=== PATIENT | male | born 1930 | race Caucasian/White ===

== ENCOUNTER → 2017-04-23 | Outpatient (CLI) | payer MEDICARE | END | disposition home or self-care (01) | LOC: RAD 13:21 | PROVIDERS: ATTEND Internal Medicine | DX: M25.462 Effusion, left knee (principal); M25.572 Pain in left ankle and joints of left foot ==

== ENCOUNTER 2018-04-21 18:40 | Inpatient (IN) | payer MEDICARE ==
[~2018-04-21] VITALS: Ht 175.3 cm; Wt 75.6 kg
[2018-04-21] MEDS ORDERED: ALLO300T PO (19:03)
[2018-04-21] MEDS ORDERED: APIX5TAB PO (19:03)
[2018-04-21] MEDS ORDERED: VITA1CAP PO (19:04)
[2018-04-21] MEDS ORDERED: ATOR40TA78 PO (19:04)
[2018-04-21] MEDS ORDERED: CARB1TAB2 PO (19:05)
[2018-04-21] MEDS ORDERED: FENT-58 EXT (19:21)
[2018-04-21] MEDS ORDERED: HYDR-3240 PO (19:21)
[2018-04-21] MEDS ORDERED: LEVO88TA2 PO (19:21)
[2018-04-21] MEDS ORDERED: GABA300C10 PO (19:21)
[2018-04-21] MEDS ORDERED: SPIR50TA2 PO (19:21)
[2018-04-21] MEDS ORDERED: METO1TAB18 PO (19:21)
[2018-04-21] MEDS ORDERED: CLON0.2T PO (19:21)
[2018-04-21] MEDS ORDERED: TRIA1TAB2 PO (19:21)
[2018-04-21 19:26] LABS: BASOPHILS # (AUTO) 0.01 x10^3/uL (0-0.1); BASOPHILS % (AUTO) 0 % (0-1); EOSINOPHILS # (AUTO) 0.01 x10^3/uL (0-0.4); EOSINOPHILS % (AUTO) 0 % (1-7); LYMPHOCYTES # (AUTO) 0.95 x10^3/uL (1-3.4); LYMPHOCYTES % (AUTO) 7 % (22-44); MD NO; MEAN CORPUSCULAR HEMOGLOBIN 23.5 pg (27.5-34.5); MEAN CORPUSCULAR HGB CONC 30.9 g/dL (33.2-36.2); MEAN CORPUSCULAR VOLUME 76.1 fL (81-97); MEAN PLATELET VOLUME 8.5 fL (7.4-10.4); MONOCYTES # (AUTO) 0.73 x10^3/uL (0.2-0.8); MONOCYTES % (AUTO) 5 % (2-9); NEUTROPHILS # (AUTO) 12.19 x10^3/uL (1.8-6.8); NEUTROPHILS % (AUTO) 88 % (42-75); PLATELET COUNT 216 x10^3/uL (130-400); RED BLOOD COUNT 4.46 x10^6/uL (4.38-5.82); RED CELL DISTRIBUTION WIDTH 21.7 % (9.4-14.8)
[2018-04-21 19:36] LABS: ALBUMIN 3.3 g/dL (3.4-5.0); ANION GAP 8 mmol/L (5-15); CALCIUM 8.9 mg/dL (8.5-10.1); CHLORIDE 105 mmol/L (98-107); CREATININE 1.61 mg/dL (0.7-1.3)
[2018-04-21 20:17] LABS: TROPONIN I < 0.015 ng/mL (0.000-0.045)
[2018-04-21] MEDS ORDERED: ONDANSETRON 2MG/ML, 2ML IVPush PRN (22:00)
[2018-04-21 23:41] VITALS: BP 120/72
[2018-04-22] MEDS ORDERED: ZOLPIDEM 5MG TABLET PO PRN
[2018-04-22] MEDS: SODIUM CHLORIDE 0.9% 1,000 ML IV SCH ×2 (00:27→13:38)
[2018-04-22] MEDS: CARBIDOPA/LEVODOPA 25 MG/100 MG TABLET PO SCH ×4 (00:55→21:11)
[2018-04-22] MEDS: APIXABAN 2.5 MG TABLET PO SCH ×3 (00:56→21:11)
[2018-04-22] MEDS: ATORVASTATIN 40 MG TABLET PO SCH ×2 (00:56→21:11)
[2018-04-22 00:57] VITALS: BP 151/73
[2018-04-22] MEDS: GABAPENTIN 300 MG CAPSULE PO SCH ×4 (00:57→21:11)
[2018-04-22] MEDS: FENTANYL 12 MCG PATCH TD SCH (01:07)
[2018-04-22 04:59] LABS: ALBUMIN 2.8 g/dL (3.4-5.0); ANION GAP 5 mmol/L (5-15); CALCIUM 8.1 mg/dL (8.5-10.1); CHLORIDE 108 mmol/L (98-107)
[2018-04-22 05:02] LABS: ALANINE AMINOTRANSFERASE 9 U/L (12-78); ALKALINE PHOSPHATASE 69 U/L (45-117); CREATININE 1.42 mg/dL (0.7-1.3); TOTAL PROTEIN 6.6 g/dL (6.4-8.2)
[2018-04-22 05:19] LABS: BASOPHILS # (AUTO) 0.02 x10^3/uL (0-0.1); BASOPHILS % (AUTO) 0 % (0-1); EOSINOPHILS # (AUTO) 0.08 x10^3/uL (0-0.4); EOSINOPHILS % (AUTO) 1 % (1-7); LYMPHOCYTES % (AUTO) 8 % (22-44); MD NO; MEAN CORPUSCULAR HEMOGLOBIN 23.7 pg (27.5-34.5); MEAN CORPUSCULAR HGB CONC 31.1 g/dL (33.2-36.2); MEAN CORPUSCULAR VOLUME 76.3 fL (81-97); MEAN PLATELET VOLUME 9.1 fL (7.4-10.4); MONOCYTES # (AUTO) 0.93 x10^3/uL (0.2-0.8); MONOCYTES % (AUTO) 7 % (2-9); NEUTROPHILS # (AUTO) 11.14 x10^3/uL (1.8-6.8); NEUTROPHILS % (AUTO) 84 % (42-75); PLATELET COUNT 195 x10^3/uL (130-400); RED CELL DISTRIBUTION WIDTH 21.7 % (9.4-14.8)
[2018-04-22] MEDS ORDERED: LEVOTHYROXINE 88 MCG TABLET PO SCH (06:00)
[2018-04-22 06:48] VITALS: BP 118/75
[2018-04-22] MEDS: METOPROLOL TARTRATE 50 MG TABLET PO SCH ×2 (06:52→17:06)
[2018-04-22 07:13] VITALS: BP 119/77
[2018-04-22] MEDS: MULTIVITS,STRESS FORMULA 1 TABLET PO SCH (08:17)
[2018-04-22] MEDS ORDERED: CARBIDOPA/LEVODOPA 25 MG/100 MG TABLET PO SCH (09:00)
[2018-04-22] MEDS ORDERED: TEMPLATE NON-FORMULARY MED. (Gabapentin** 300 MG) PO SCH (09:00)
[2018-04-22] MEDS ORDERED: FENTANYL 12 MCG EXT SCH (09:00)
[2018-04-22] MEDS ORDERED: BISACODYL 10 MG SUPP PR PRN (09:30)
[2018-04-22] MEDS: HYDROcodone/APAP 5/325 TABLET PO PRN ×3 (09:54→21:15)
[2018-04-22] MEDS ORDERED: FENTANYL 12 MCG PATCH TD SCH (10:00)
[2018-04-22 13:36] VITALS: BP 137/78
[2018-04-22 17:32] VITALS: BP 132/82
[2018-04-22 19:07] VITALS: BP 136/81
[2018-04-23 01:41] VITALS: BP 122/80
[2018-04-23] MEDS: HYDROcodone/APAP 5/325 TABLET PO PRN ×4 (02:20→21:46)
[2018-04-23] MEDS: METOPROLOL TARTRATE 50 MG TABLET PO SCH ×2 (05:36→18:12)
[2018-04-23] MEDS: LEVOTHYROXINE 88 MCG TABLET PO SCH (05:36)
[2018-04-23] MEDS: CARBIDOPA/LEVODOPA 25 MG/100 MG TABLET PO SCH ×4 (05:36→21:45)
[2018-04-23 08:03] VITALS: BP 145/69
[2018-04-23] MEDS: APIXABAN 2.5 MG TABLET PO SCH ×3 (08:12→21:57)
[2018-04-23] MEDS: MULTIVITS,STRESS FORMULA 1 TABLET PO SCH (08:12)
[2018-04-23] MEDS: GABAPENTIN 300 MG CAPSULE PO SCH ×3 (08:13→21:46)
[2018-04-23 13:40] VITALS: BP 154/84
[2018-04-23 18:10] VITALS: BP 148/83
[2018-04-23] MEDS: ATORVASTATIN 40 MG TABLET PO SCH (21:46)
[2018-04-24 02:01] VITALS: BP 138/76
[2018-04-24 06:10] VITALS: BP 153/81
[2018-04-24] MEDS: CARBIDOPA/LEVODOPA 25 MG/100 MG TABLET PO SCH ×4 (06:13→21:23)
[2018-04-24] MEDS: DOCUSATE 100 MG CAPSULE PO PRN ×2 (06:13→21:23)
[2018-04-24] MEDS: METOPROLOL TARTRATE 50 MG TABLET PO SCH ×2 (06:13→18:10)
[2018-04-24] MEDS: HYDROcodone/APAP 5/325 TABLET PO PRN ×3 (06:13→18:10)
[2018-04-24] MEDS: LEVOTHYROXINE 88 MCG TABLET PO SCH (06:14)
[2018-04-24 07:40] VITALS: BP 155/77
[2018-04-24] MEDS: APIXABAN 2.5 MG TABLET PO SCH ×2 (09:06→21:23)
[2018-04-24] MEDS: GABAPENTIN 300 MG CAPSULE PO SCH ×3 (09:06→21:23)
[2018-04-24] MEDS: MULTIVITS,STRESS FORMULA 1 TABLET PO SCH (09:06)
[2018-04-24 13:55] VITALS: BP 119/75
[2018-04-24] MEDS ORDERED: POLYETHYLENE GLYCOL 17 GM PACKET PO PRN (15:30)
[2018-04-24 18:09] VITALS: BP 159/84
[2018-04-24 19:01] VITALS: BP 157/89
[2018-04-24] MEDS: ATORVASTATIN 40 MG TABLET PO SCH (21:23)
[2018-04-25 00:38] VITALS: BP 115/77
[2018-04-25] MEDS: FENTANYL 12 MCG PATCH TD SCH (00:59)
[2018-04-25 05:56] VITALS: BP 138/83
[2018-04-25] MEDS: HYDROcodone/APAP 5/325 TABLET PO PRN ×3 (05:59→16:02)
[2018-04-25] MEDS: METOPROLOL TARTRATE 50 MG TABLET PO SCH ×2 (05:59→17:54)
[2018-04-25] MEDS: CARBIDOPA/LEVODOPA 25 MG/100 MG TABLET PO SCH ×4 (05:59→22:05)
[2018-04-25] MEDS: LEVOTHYROXINE 88 MCG TABLET PO SCH (05:59)
[2018-04-25 07:20] VITALS: BP 137/84
[2018-04-25] MEDS: MULTIVITS,STRESS FORMULA 1 TABLET PO SCH (08:52)
[2018-04-25] MEDS: GABAPENTIN 300 MG CAPSULE PO SCH ×3 (08:52→22:05)
[2018-04-25] MEDS: APIXABAN 2.5 MG TABLET PO SCH ×2 (08:52→22:05)
[2018-04-25 12:32] VITALS: BP 110/72
[2018-04-25 17:51] VITALS: BP 145/74
[2018-04-25 19:36] VITALS: BP 155/74
[2018-04-25] MEDS: BACLOFEN 10 MG TABLET PO PRN (22:05)
[2018-04-25] MEDS: ATORVASTATIN 40 MG TABLET PO SCH (22:05)
[2018-04-26] VITALS (7 sets, daily range): BP systolic 131–169; BP diastolic 62–82
[2018-04-26] MEDS: BACLOFEN 10 MG TABLET PO PRN ×2 (06:25→16:18)
[2018-04-26] MEDS: CARBIDOPA/LEVODOPA 25 MG/100 MG TABLET PO SCH ×4 (06:25→20:34)
[2018-04-26] MEDS: METOPROLOL TARTRATE 50 MG TABLET PO SCH ×2 (06:25→17:56)
[2018-04-26] MEDS: LEVOTHYROXINE 88 MCG TABLET PO SCH (06:25)
[2018-04-26] MEDS: MULTIVITS,STRESS FORMULA 1 TABLET PO SCH (08:41)
[2018-04-26] MEDS: GABAPENTIN 300 MG CAPSULE PO SCH ×3 (08:41→20:34)
[2018-04-26] MEDS: HYDROcodone/APAP 5/325 TABLET PO PRN ×4 (08:41→20:34)
[2018-04-26] MEDS: APIXABAN 2.5 MG TABLET PO SCH ×2 (08:41→20:34)
[2018-04-26] MEDS: ATORVASTATIN 40 MG TABLET PO SCH (20:34)
[2018-04-27 00:54] VITALS: BP 147/74
[2018-04-27] MEDS: BACLOFEN 10 MG TABLET PO PRN ×3 (01:33→12:53)
[2018-04-27] MEDS: HYDROcodone/APAP 5/325 TABLET PO PRN ×2 (04:43→09:42)
[2018-04-27] MEDS: CARBIDOPA/LEVODOPA 25 MG/100 MG TABLET PO SCH ×3 (06:31→15:43)
[2018-04-27] MEDS: LEVOTHYROXINE 88 MCG TABLET PO SCH (06:31)
[2018-04-27] MEDS: METOPROLOL TARTRATE 50 MG TABLET PO SCH (06:31)
[2018-04-27] MEDS: MULTIVITS,STRESS FORMULA 1 TABLET PO SCH (07:36)
[2018-04-27] MEDS: APIXABAN 2.5 MG TABLET PO SCH (07:36)
[2018-04-27] MEDS: GABAPENTIN 300 MG CAPSULE PO SCH ×2 (07:36→15:43)
[2018-04-27 07:46] VITALS: BP 151/78
[2018-04-27] MEDS ORDERED: SPIRONOLACTONE 50 MG TABLET PO SCH (12:30)
[2018-04-27] MEDS ORDERED: METO50TA82 PO (12:59)
[2018-04-27] MEDS ORDERED: HYDR-3240 PO (12:59)
[2018-04-27] MEDS ORDERED: DOCU-131 PO (12:59)
[2018-04-27] MEDS ORDERED: MULT1TAB76 PO (12:59)
[2018-04-27] MEDS ORDERED: POLY17PO5 PO (12:59)
[2018-04-27] MEDS ORDERED: BACL-19 PO (12:59)
[2018-04-27] MEDS ORDERED: APIX2.5T PO (12:59)
[2018-04-27] MEDS ORDERED: SPIR50TA PO (12:59)
[2018-04-27] MEDS ORDERED: BISA10SU65 PR (12:59)
[2018-04-27] MEDS ORDERED: CARB1TAB22 PO (12:59)
[2018-04-27] MEDS ORDERED: HYDROcodone/APAP 5/325 TABLET PO PRN (13:00)
[2018-04-27 14:42] VITALS: BP 143/59
[2018-04-28] MEDS ORDERED: SPIRONOLACTONE 25 MG TABLET PO SCH (09:00)
== END 2018-04-27 16:20 | DRG 205 ==
LOC: ED 21:06 → EDIP 21:59 → MERGE 21:59 → 5SO 23:18 → 3NE 04-22 17:28
PROVIDERS: ADMIT Internal Medicine; ATTEND Internal Medicine
DX: S22.31XA Fracture of one rib, right side, initial encounter for closed fracture (principal); R53.2 Functional quadriplegia; G20 Parkinson's disease; W19.XXXA Unspecified fall, initial encounter; E03.9 Hypothyroidism, unspecified; E78.5 Hyperlipidemia, unspecified; W18.30XA Fall on same level, unspecified, initial encounter; G89.4 Chronic pain syndrome; I11.0 Hypertensive heart disease with heart failure; I50.9 Heart failure, unspecified; Z66 Do not resuscitate; Z51.5 Encounter for palliative care; Z85.820 Personal history of malignant melanoma of skin; Y92.009 Unspecified place in unspecified non-institutional (private) residence as the place of occurrence of the external cause; Z88.0 Allergy status to penicillin; M19.90 Unspecified osteoarthritis, unspecified site
CPT/HCPCS: 36415; 70450; 71045; 72110; 80048; 80053; 82040; 83880; 84484; 85025; 93005; 99285; J7030

== ENCOUNTER 2018-05-14 13:59 | Inpatient (IN) | payer MEDICARE ==
[~2018-05-14] VITALS: Ht 175.3 cm; Wt 76.3 kg
[~2018-05-14 13:59] MED LIST: ALLO300T PO; APIX2.5T PO; APIX5TAB PO; ATOR40TA78 PO; BACL-19 PO; BISA10SU65 PR; CARB1TAB2 PO; CARB1TAB22 PO; CLON0.2T PO; DOCU-131 PO; FENT-58 EXT; GABA300C10 PO; HYDR-3240 PO; LEVO88TA2 PO; METO1TAB18 PO; METO50TA82 PO; MULT1TAB76 PO; POLY17PO5 PO; SPIR50TA PO; SPIR50TA4 PO; TRIA1TAB2 PO; VITA1CAP PO
[2018-05-14] MEDS ORDERED: SODIUM CHLORIDE FLUSH 10ML SYR IVF ONE (14:30)
[2018-05-14] MEDS ORDERED: PLEASE ENTER HEIGHT AND WEIGHT MC SCH (14:30)
[2018-05-14] MEDS ORDERED: SODIUM CHLORIDE 0.9% 1,000ML IVBOLUS ONE (14:30)
[2018-05-14 14:33] LABS: MEAN CORPUSCULAR HEMOGLOBIN 24.1 pg (27.5-34.5); MEAN CORPUSCULAR HGB CONC 31.5 g/dL (33.2-36.2); MEAN CORPUSCULAR VOLUME 76.6 fL (81-97); MEAN PLATELET VOLUME 8.1 fL (7.4-10.4); PLATELET COUNT 281 x10^3/uL (130-400); RED BLOOD COUNT 4.46 x10^6/uL (4.38-5.82); RED CELL DISTRIBUTION WIDTH 22.1 % (9.4-14.8)
[2018-05-14 14:42] LABS: ALBUMIN 2.5 g/dL (3.4-5.0); ANION GAP 9 mmol/L (5-15); CALCIUM 8.2 mg/dL (8.5-10.1); CHLORIDE 104 mmol/L (98-107)
[2018-05-14 14:47] LABS: ALANINE AMINOTRANSFERASE 10 U/L (12-78); ALKALINE PHOSPHATASE 82 U/L (45-117); BILIRUBIN,TOTAL 0.5 mg/dL (0.2-1.0); CREATININE 1.33 mg/dL (0.7-1.3); TOTAL PROTEIN 6.5 g/dL (6.4-8.2); TROPONIN I 0.034 ng/mL (0.000-0.045)
[2018-05-14 15:05] LABS: BASOPHILS # (AUTO) 0.02 x10^3/uL (0-0.1); BASOPHILS % (AUTO) 0 % (0-1); EOSINOPHILS # (AUTO) 0.15 x10^3/uL (0-0.4); EOSINOPHILS % (AUTO) 1 % (1-7); LYMPHOCYTES # (AUTO) 1.27 x10^3/uL (1-3.4); LYMPHOCYTES % (AUTO) 10 % (22-44); MD SCAN; MONOCYTES % (AUTO) 5 % (2-9); NEUTROPHILS # (AUTO) 10.45 x10^3/uL (1.8-6.8); NEUTROPHILS % (AUTO) 84 % (42-75)
[2018-05-14 15:44] LABS: HCT (SEDRATE) 34.2 % (39.2-51.8)
[2018-05-14] MEDS ORDERED: OMNIPAQUE 350 MG/ML, 150 ML BOTTLE ONE (16:23)
[2018-05-14] MEDS ORDERED: DOCUSATE 100 MG CAPSULE PO PRN (19:00)
[2018-05-14] MEDS ORDERED: FENTANYL 12 MCG EXT SCH (19:00)
[2018-05-14] MEDS ORDERED: POLYETHYLENE GLYCOL 17 GM PACKET PO PRN (19:00)
[2018-05-14] MEDS ORDERED: TEMAZEPAM 15 MG CAPSULE PO PRN (19:00)
[2018-05-14] MEDS ORDERED: ACETAMINOPHEN 325 MG TABLET PO PRN (19:00)
[2018-05-14] MEDS: FENTANYL REMOVE PATCH NOTE XX SCH (20:00)
[2018-05-14 20:07] VITALS: BP 125/76
[2018-05-14] MEDS: SODIUM CHLORIDE FLUSH 10ML SYR IVF SCH (21:00)
[2018-05-14] MEDS: GABAPENTIN 300 MG CAPSULE PO SCH (22:24)
[2018-05-14] MEDS: ATORVASTATIN 40 MG TABLET PO SCH (22:24)
[2018-05-14] MEDS: CARBIDOPA/LEVODOPA 25 MG/100 MG TABLET PO SCH (22:24)
[2018-05-14] MEDS: FENTANYL 12 MCG PATCH TD SCH (22:43)
[2018-05-15 03:10] VITALS: BP 116/69
[2018-05-15] MEDS: METOPROLOL TARTRATE 50 MG TABLET PO SCH ×2 (06:30→17:33)
[2018-05-15] MEDS: CARBIDOPA/LEVODOPA 25 MG/100 MG TABLET PO SCH ×4 (06:30→20:20)
[2018-05-15] MEDS: LEVOTHYROXINE 88 MCG TABLET PO SCH (06:31)
[2018-05-15 08:47] VITALS: BP 114/71
[2018-05-15] MEDS: SODIUM CHLORIDE FLUSH 10ML SYR IVF SCH ×2 (09:00→20:21)
[2018-05-15] MEDS: GABAPENTIN 300 MG CAPSULE PO SCH ×3 (09:50→20:20)
[2018-05-15] MEDS: ALLOPURINOL 100 MG TABLET PO SCH (09:50)
[2018-05-15] MEDS: HYDROcodone/APAP 5/325 TABLET PO PRN ×2 (13:19→18:29)
[2018-05-15 13:45] VITALS: BP 135/87
[2018-05-15 18:57] VITALS: BP 135/65
[2018-05-15] MEDS: ATORVASTATIN 40 MG TABLET PO SCH (20:20)
[2018-05-16 01:45] VITALS: BP 144/74
[2018-05-16] MEDS ORDERED: VANCOMYCIN 1,400 MG in SODIUM CHLORIDE 0.9% 250 ML IV SCH (02:00)
[2018-05-16] MEDS ORDERED: PHARMACOKINETIC MONITORING MC PRN (02:00)
[2018-05-16] MEDS ORDERED: VANCOMYCIN PER PHARMACY MC PRN (02:00)
[2018-05-16] MEDS ORDERED: PHARMACOKINETIC CONSULTATION MC ONE (02:00)
[2018-05-16] MEDS: HYDROcodone/APAP 5/325 TABLET PO PRN ×4 (02:02→22:17)
[2018-05-16 07:41] LABS: CLOSTRIDIUM DIFFICILE ANTIGEN NEGATIVE; CLOSTRIDIUM DIFFICILE TOXIN NEGATIVE (Negative)
[2018-05-16 07:47] VITALS: BP 125/72
[2018-05-16] MEDS: CARBIDOPA/LEVODOPA 25 MG/100 MG TABLET PO SCH ×4 (08:04→21:48)
[2018-05-16] MEDS: LEVOTHYROXINE 88 MCG TABLET PO SCH (08:04)
[2018-05-16] MEDS: METOPROLOL TARTRATE 50 MG TABLET PO SCH ×2 (08:04→18:36)
[2018-05-16] MEDS ORDERED: LIDOCAINE PF 2%, 5ML ONE (08:42)
[2018-05-16] MEDS: SODIUM CHLORIDE FLUSH 10ML SYR IVF SCH ×2 (09:00→21:47)
[2018-05-16] MEDS: GABAPENTIN 300 MG CAPSULE PO SCH ×3 (09:00→21:48)
[2018-05-16 12:01] VITALS: BP 130/74
[2018-05-16 13:35] LABS: MICROSCOPIC NOT IND
[2018-05-16 13:37] LABS: CULTURE INDICATED? NO
[2018-05-16] MEDS: ALLOPURINOL 100 MG TABLET PO SCH (15:45)
[2018-05-16] MEDS: CEFUROXIME 1.5 GM in SODIUM CHLORIDE 0.9% 100 ML IV SCH ×2 (16:45→21:47)
[2018-05-16 19:15] VITALS: BP 136/70
[2018-05-16] MEDS: ATORVASTATIN 40 MG TABLET PO SCH (21:48)
[2018-05-17 01:11] VITALS: BP 134/71
[2018-05-17] MEDS: HYDROcodone/APAP 5/325 TABLET PO PRN ×3 (03:59→20:51)
[2018-05-17 05:34] LABS: ALANINE AMINOTRANSFERASE 16 U/L (12-78); ALBUMIN 2.3 g/dL (3.4-5.0); ANION GAP 8 mmol/L (5-15); CALCIUM 8.1 mg/dL (8.5-10.1); CHLORIDE 109 mmol/L (98-107)
[2018-05-17 05:37] LABS: ALKALINE PHOSPHATASE 78 U/L (45-117); BILIRUBIN,TOTAL 0.8 mg/dL (0.2-1.0); CREATININE 0.85 mg/dL (0.7-1.3); TOTAL PROTEIN 5.7 g/dL (6.4-8.2)
[2018-05-17 05:41] LABS: MEAN CORPUSCULAR HEMOGLOBIN 24.4 pg (27.5-34.5); MEAN CORPUSCULAR HGB CONC 31.8 g/dL (33.2-36.2); MEAN CORPUSCULAR VOLUME 76.8 fL (81-97); MEAN PLATELET VOLUME 8.5 fL (7.4-10.4); PLATELET COUNT 238 x10^3/uL (130-400); RED BLOOD COUNT 4.23 x10^6/uL (4.38-5.82); RED CELL DISTRIBUTION WIDTH 22.7 % (9.4-14.8)
[2018-05-17 06:00] LABS: BASOPHILS # (AUTO) 0.03 x10^3/uL (0-0.1); BASOPHILS % (AUTO) 0 % (0-1); EOSINOPHILS # (AUTO) 0.12 x10^3/uL (0-0.4); EOSINOPHILS % (AUTO) 2 % (1-7); LYMPHOCYTES # (AUTO) 1.04 x10^3/uL (1-3.4); LYMPHOCYTES % (AUTO) 13 % (22-44); MD SCAN; MONOCYTES # (AUTO) 0.69 x10^3/uL (0.2-0.8); MONOCYTES % (AUTO) 8 % (2-9); NEUTROPHILS # (AUTO) 6.39 x10^3/uL (1.8-6.8); NEUTROPHILS % (AUTO) 77 % (42-75)
[2018-05-17] MEDS: CEFUROXIME 1.5 GM in SODIUM CHLORIDE 0.9% 100 ML IV SCH ×3 (06:11→22:22)
[2018-05-17] MEDS: CARBIDOPA/LEVODOPA 25 MG/100 MG TABLET PO SCH ×4 (06:12→20:51)
[2018-05-17] MEDS: LEVOTHYROXINE 88 MCG TABLET PO SCH (06:12)
[2018-05-17] MEDS: METOPROLOL TARTRATE 50 MG TABLET PO SCH ×2 (06:12→18:52)
[2018-05-17 06:35] VITALS: BP 159/74
[2018-05-17] MEDS: SODIUM CHLORIDE FLUSH 10ML SYR IVF SCH ×2 (08:34→20:50)
[2018-05-17] MEDS: ALLOPURINOL 100 MG TABLET PO SCH (08:34)
[2018-05-17] MEDS: GABAPENTIN 300 MG CAPSULE PO SCH ×3 (08:34→20:51)
[2018-05-17 12:03] VITALS: BP 128/70
[2018-05-17 19:19] VITALS: BP 114/68
[2018-05-17] MEDS: FENTANYL 12 MCG PATCH TD SCH (20:51)
[2018-05-17] MEDS: ATORVASTATIN 40 MG TABLET PO SCH (20:51)
[2018-05-17] MEDS: FENTANYL REMOVE PATCH NOTE XX SCH (21:00)
[2018-05-18 01:13] VITALS: BP 124/75
[2018-05-18] MEDS: LEVOTHYROXINE 88 MCG TABLET PO SCH (05:33)
[2018-05-18] MEDS: CARBIDOPA/LEVODOPA 25 MG/100 MG TABLET PO SCH ×4 (05:33→20:54)
[2018-05-18] MEDS: METOPROLOL TARTRATE 50 MG TABLET PO SCH ×2 (05:33→17:26)
[2018-05-18] MEDS: CEFUROXIME 1.5 GM in SODIUM CHLORIDE 0.9% 100 ML IV SCH (05:34)
[2018-05-18 07:10] VITALS: BP 123/77
[2018-05-18] MEDS: ALLOPURINOL 100 MG TABLET PO SCH (07:55)
[2018-05-18] MEDS: GABAPENTIN 300 MG CAPSULE PO SCH ×3 (07:55→20:54)
[2018-05-18] MEDS: SODIUM CHLORIDE FLUSH 10ML SYR IVF SCH ×2 (07:56→20:54)
[2018-05-18] MEDS: HYDROcodone/APAP 5/325 TABLET PO PRN ×2 (07:56→17:22)
[2018-05-18] MEDS ORDERED: CEFUROXIME 1.5 GM in SODIUM CHLORIDE 0.9% 50 ML IV SCH (09:00)
[2018-05-18 12:51] VITALS: BP 112/70
[2018-05-18] MEDS: CEFUROXIME 1.5 GM in SODIUM CHLORIDE 0.9% 50 ML IV SCH ×2 (14:01→22:19)
[2018-05-18 17:25] VITALS: BP 138/75
[2018-05-18 19:08] VITALS: BP 125/73
[2018-05-18] MEDS: APIXABAN 5 MG TABLET PO SCH (20:54)
[2018-05-18] MEDS: ATORVASTATIN 40 MG TABLET PO SCH (20:54)
[2018-05-18] MEDS ORDERED: APIXABAN 5 MG TABLET PO SCH (21:00)
[2018-05-18] MEDS ORDERED: APIXABAN 2.5 MG TABLET PO SCH (21:00)
[2018-05-19 00:06] VITALS: BP 126/68
[2018-05-19] MEDS: HYDROcodone/APAP 5/325 TABLET PO PRN ×5 (00:48→15:27)
[2018-05-19] MEDS: CEFUROXIME 1.5 GM in SODIUM CHLORIDE 0.9% 50 ML IV SCH ×2 (05:30→14:19)
[2018-05-19] MEDS: METOPROLOL TARTRATE 50 MG TABLET PO SCH (05:31)
[2018-05-19] MEDS: LEVOTHYROXINE 88 MCG TABLET PO SCH (05:31)
[2018-05-19] MEDS: CARBIDOPA/LEVODOPA 25 MG/100 MG TABLET PO SCH ×3 (05:31→16:10)
[2018-05-19 07:01] VITALS: BP 114/74
[2018-05-19] MEDS: SODIUM CHLORIDE FLUSH 10ML SYR IVF SCH (09:00)
[2018-05-19] MEDS: ALLOPURINOL 100 MG TABLET PO SCH (10:17)
[2018-05-19] MEDS: GABAPENTIN 300 MG CAPSULE PO SCH ×2 (10:17→16:10)
[2018-05-19] MEDS: APIXABAN 5 MG TABLET PO SCH (10:17)
[2018-05-19] MEDS ORDERED: TEMA15CA PO ×2 (10:54→10:55)
[2018-05-19] MEDS ORDERED: CEFU1.5V IV (11:06)
[2018-05-19] MEDS ORDERED: ACET-1757 PO (11:08)
[2018-05-19 14:00] VITALS: BP 129/68
== END 2018-05-19 16:49 | DRG 871 ==
LOC: ED 16:55 → EDIP 16:56 → ED 18:04 → 2NE 19:47 → 3NE 19:48
PROVIDERS: ADMIT Internal Medicine; ATTEND Internal Medicine
PROC: 0T9B70Z Drainage of Bladder with Drainage Device, Via Natural or Artificial Opening (ICD-10-PCS; principal; 2018-05-16)
PROC: 009U3ZX Drainage of Spinal Canal, Percutaneous Approach, Diagnostic (ICD-10-PCS; 2018-05-16)
PROC: B01B1ZZ Fluoroscopy of Spinal Cord using Low Osmolar Contrast (ICD-10-PCS; 2018-05-16)
DX: A41.89 Other specified sepsis (principal); E43 Unspecified severe protein-calorie malnutrition; G82.20 Paraplegia, unspecified; I44.2 Atrioventricular block, complete; I50.40 Unspecified combined systolic (congestive) and diastolic (congestive) heart failure; M46.24 Osteomyelitis of vertebra, thoracic region; G83.4 Cauda equina syndrome; R65.20 Severe sepsis without septic shock; G20 Parkinson's disease; E03.9 Hypothyroidism, unspecified; I11.0 Hypertensive heart disease with heart failure; B95.5 Unspecified streptococcus as the cause of diseases classified elsewhere; D63.8 Anemia in other chronic diseases classified elsewhere; G14 Postpolio syndrome; G62.9 Polyneuropathy, unspecified; G89.4 Chronic pain syndrome; I36.1 Nonrheumatic tricuspid (valve) insufficiency; I27.20 Pulmonary hypertension, unspecified; I48.2 Chronic atrial fibrillation; M35.3 Polymyalgia rheumatica; M41.9 Scoliosis, unspecified; M48.04 Spinal stenosis, thoracic region; M51.36 Other intervertebral disc degeneration, lumbar region; N28.9 Disorder of kidney and ureter, unspecified; R29.6 Repeated falls; Z51.5 Encounter for palliative care; Z66 Do not resuscitate; Z79.01 Long term (current) use of anticoagulants; Z79.891 Long term (current) use of opiate analgesic; Z85.820 Personal history of malignant melanoma of skin; Z88.0 Allergy status to penicillin; Z95.0 Presence of cardiac pacemaker; Z68.24 Body mass index [BMI] 24.0-24.9, adult
CPT/HCPCS: 36415; 62284; 71260; 72128; 72129; 72132; 80053; 81003; 83605; 84484; 85025; 85651; 86140; 87040; 87070; 87075; 87077; 87102; 87116; 87181; 87205; 87206; 87324; 93005; 93306; 99285; J0697; J3370; Q9967; J7050

== ENCOUNTER 2018-06-29 22:56 | Emergency (ER) | payer MEDICARE ==
[~2018-06-29] VITALS: Ht 175.3 cm; Wt 70.0 kg
[~2018-06-29 22:56] MED LIST changes: +ACET-1757 PO; +CEFU1.5V IV; +TEMA15CA PO
[2018-06-29 23:53] LABS: MEAN CORPUSCULAR HEMOGLOBIN 21.9 pg (27.5-34.5); MEAN CORPUSCULAR HGB CONC 30.1 g/dL (33.2-36.2); MEAN CORPUSCULAR VOLUME 72.6 fL (81-97); MEAN PLATELET VOLUME 9.4 fL (7.4-10.4); PLATELET COUNT 423 x10^3/uL (130-400); RED BLOOD COUNT 4.15 x10^6/uL (4.38-5.82)
[2018-06-29 23:54] LABS: BASOPHILS # (AUTO) 0.01 x10^3/uL (0-0.1); BASOPHILS % (AUTO) 0 % (0-1); EOSINOPHILS # (AUTO) 0.32 x10^3/uL (0-0.4); EOSINOPHILS % (AUTO) 2 % (1-7); LYMPHOCYTES # (AUTO) 0.83 x10^3/uL (1-3.4); LYMPHOCYTES % (AUTO) 6 % (22-44); MD NO; MONOCYTES % (AUTO) 1 % (2-9); NEUTROPHILS # (AUTO) 12.28 x10^3/uL (1.8-6.8); NEUTROPHILS % (AUTO) 90 % (42-75)
[2018-06-29] MEDS ORDERED: BACITRACIN ZINC OINT 500U/GM, 0.9 GM ONE (23:58)
[2018-06-30 00:03] LABS: INTERNATIONAL NORMALIZED RATIO 1.22 (0.93-1.1); PROTHROMBIN TIME 12.6 Seconds (9.6-11.5)
[2018-06-30 00:06] LABS: ALBUMIN 2.2 g/dL (3.4-5.0); ANION GAP 7 mmol/L (5-15); CALCIUM 8.1 mg/dL (8.5-10.1); CHLORIDE 116 mmol/L (98-107); CREATININE 0.93 mg/dL (0.7-1.3)
[2018-06-30 00:08] LABS: ALANINE AMINOTRANSFERASE < 6 U/L (12-78)
[2018-06-30 00:10] LABS: ALKALINE PHOSPHATASE 92 U/L (45-117); BILIRUBIN,TOTAL 0.6 mg/dL (0.2-1.0); TOTAL PROTEIN 6.6 g/dL (6.4-8.2); TROPONIN I 0.024 ng/mL (0.000-0.045)
[2018-06-30 00:13] LABS: MICROSCOPIC INDICATED
[2018-06-30 00:14] LABS: CULTURE INDICATED? NO
[2018-06-30] MEDS ORDERED: BACL20TA PO (00:17)
[2018-06-30] MEDS ORDERED: METH150T PO (00:17)
[2018-06-30] MEDS ORDERED: LACT1CAP61 PO (00:17)
[2018-06-30] MEDS ORDERED: GABA600T PO (00:17)
[2018-06-30] MEDS ORDERED: GUAI400T66 PO (00:17)
[2018-06-30] MEDS ORDERED: ALLO300T PO (00:17)
[2018-06-30] MEDS ORDERED: LEVO500T47 PO (00:17)
[2018-06-30] MEDS ORDERED: OXYC5CAP2 PO ×2 (00:17)
[2018-06-30] MEDS ORDERED: CYCL-259 PO (00:17)
[2018-06-30] MEDS ORDERED: NITR0.6T4 SL (00:17)
[2018-06-30 02:27] VITALS: BP 159/66
== END 2018-06-30 02:34 | disposition home or self-care (01) ==
LOC: ED 23:55
DX: S09.90XA Unspecified injury of head, initial encounter (principal); D50.8 Other iron deficiency anemias; G89.29 Other chronic pain; I48.91 Unspecified atrial fibrillation; M54.9 Dorsalgia, unspecified; I11.0 Hypertensive heart disease with heart failure; I50.9 Heart failure, unspecified; G20 Parkinson's disease; R05 Cough; Z79.01 Long term (current) use of anticoagulants; Z95.0 Presence of cardiac pacemaker; W18.39XA Other fall on same level, initial encounter; Y93.89 Activity, other specified; Y92.89 Other specified places as the place of occurrence of the external cause; Y99.8 Other external cause status
CPT/HCPCS: 36415; 70450; 71045; 80053; 81001; 84484; 85025; 85610; 85730; 93005; 99285